=== PATIENT | female | born 1970 | race Caucasian/White ===

== ENCOUNTER 2020-05-02 16:53 | Emergency (ER) | payer MEDICAID, OTHER ==
[~2020-05-02] VITALS: Ht 170.2 cm; Wt 66.0 kg
[~2020-05-02 16:53] MED LIST: CEPH-368 PO; CIPR250T27 PO; DIVA-61 PO; DOCU-131 PO; FLUO20CA23 PO; HYDR100C2 PO; IBUP-1221 PO; LEVO50TA5 PO; LISI5TAB7 PO; LORA1TAB PO; OLAN20TA14 PO; ONDA-89 PO; OXYC-380 PO; OXYC1TAB14 PO; POLY10DR3 LEFTEYE; SULF1TAB24 PO
[2020-05-02] MEDS ORDERED: ASPIRIN 81 MG TABLET CHEW ONE (17:15)
--- NOTE | 2020-05-02 17:25 | NUR ---
[facility]/LEFT 9/10 CP THAT STARTED AROUND 4 PM. PT LAYING IN BED MOVING AROUND NON STOP STATING THE PAIN IS BAD ENOUGH SHE CANNOT STOP MOVING. PT STATES SHE HAD TOOTH INFECTION, WAS RECIEVING TREATMENT AND DEVELOPED SEPSIS. PT WAS TREATED AT [facility] FOR SEPSIS AND HAD MITRAL VALVE REPLACEMENT THERE FROM SEPSIS INFECTION, ABOUT 1.5 MONTHS AGO. PT ENDED UP LEAVING AMA AND STATES SHE DID NOT FINISH HER ABX TREATMENT. PT HAS HEALING MIDLINE INCISION AND X 2 SURGICAL STAB SITES ON UPPER ABDOMEN WITH SUTURES ALONG WITH X 1 SURGICAL STAB SITE ON LEFT LATERAL TORSO WITH SUTURE. PT STATES SHE HAS NOT FOLLOWED UP AFTER LEAVING AMA. TWO GUARDS AT BEDSIDE. PT IN HANDCUFFS AND ONE ANKLE CUFF. CONNECTED TO BOILING TUB OPERATOR AND CONTINUOUS PULSE OX
[2020-05-02] MEDS ORDERED: ASPIRIN 81 MG TABLET CHEW PO ONE (17:30)
[2020-05-02] MEDS ORDERED: SODIUM CHLORIDE FLUSH 10ML SYR IVF ONE (17:30)
[2020-05-02 17:33] LABS: BASOPHILS % (AUTO) 1 % (0-1); EOSINOPHILS % (AUTO) 3 % (1-7); LYMPHOCYTES % (AUTO) 27 % (22-44); MEAN CORPUSCULAR HEMOGLOBIN 28.9 pg (27.0-34.8); MEAN CORPUSCULAR HGB CONC 32.3 g/dL (32.4-35.8); MEAN PLATELET VOLUME 6.7 fL (7.4-10.4); MONOCYTES % (AUTO) 10 % (2-9); NEUTROPHILS % (AUTO) 59 % (42-75); PLATELET COUNT 314 x10^3/uL (130-400); RED CELL DISTRIBUTION WIDTH 17.2 % (9.6-15.2)
[2020-05-02 17:38] LABS: MD NO
[2020-05-02 17:45] LABS: ALANINE AMINOTRANSFERASE 17 U/L (12-78); ALBUMIN 2.8 g/dL (3.4-5.0); ANION GAP 5 mmol/L (5-15); CALCIUM 8.2 mg/dL (8.5-10.1); CHLORIDE 112 mmol/L (98-107); CREATININE 0.78 mg/dL (0.55-1.02)
[2020-05-02 17:46] LABS: INTERNATIONAL NORMALIZED RATIO 1.07 (0.93-1.1); PROTHROMBIN TIME 11.4 Seconds (9.6-11.5)
[2020-05-02 17:50] LABS: ALKALINE PHOSPHATASE 128 U/L (45-117); BILIRUBIN,TOTAL 0.3 mg/dL (0.2-1.0); TOTAL PROTEIN 5.8 g/dL (6.4-8.2); TROPONIN I 0.024 ng/mL (0.000-0.045)
--- NOTE | 2020-05-02 17:57 | NUR ---
UA COLLECTED AND WALKED TO LAB
[2020-05-02 18:16] LABS: AMPHETAMINE SCREEN, URINE Positive (Negative); BARBITURATE SCREEN, URINE Negative (Negative); BENZODIAZEPINE SCREEN, URINE Positive (Negative); CANNABINOID SCREEN, URINE Negative (Negative); COCAINE SCREEN, URINE Negative (Negative); METHADONE SCREEN, URINE Negative (Negative); OPIATE SCREEN, URINE Negative (Negative)
--- NOTE | 2020-05-02 20:00 | NUR ---
PT RESTING IN [place], REQUESTING PAIN MEDS. X2 GUARDS AT BEDSIDE
[2020-05-02] MEDS ORDERED: MORPHINE SULFATE 4 MG/ML, 1ML ONE (20:08)
[2020-05-02] MEDS ORDERED: MORPHINE SULFATE 4 MG/ML, 1ML IVPush ONE (20:30)
[2020-05-02] MEDS ORDERED: OMNIPAQUE 350 MG/ML, 100ML BOTTLE ONE (22:20)
[2020-05-02 22:50] VITALS: BP 107/66
== END 2020-05-02 23:01 | disposition home or self-care (01) ==
LOC: ED 17:02
DX: S32.009A Unspecified fracture of unspecified lumbar vertebra, initial encounter for closed fracture (principal); R07.89 Other chest pain; F10.10 Alcohol abuse, uncomplicated; F15.10 Other stimulant abuse, uncomplicated; F13.10 Sedative, hypnotic or anxiolytic abuse, uncomplicated; I25.2 Old myocardial infarction; R94.31 Abnormal electrocardiogram [ECG] [EKG]; I10 Essential (primary) hypertension; E78.00 Pure hypercholesterolemia, unspecified; Z95.4 Presence of other heart-valve replacement; Z72.9 Problem related to lifestyle, unspecified; X58.XXXA Exposure to other specified factors, initial encounter; Y93.89 Activity, other specified; Y92.89 Other specified places as the place of occurrence of the external cause; Y99.8 Other external cause status; Y90.9 Presence of alcohol in blood, level not specified
CPT/HCPCS: 36415; 71045; 71275; 74174; 80053; 80307; 84484; 85025; 85379; 85610; 85730; 93005; 96374; 99285; J2270; Q9967

== ENCOUNTER 2020-06-23 12:05 | Emergency (ER) | payer MEDICAID, OTHER ==
[~2020-06-23] VITALS: Ht 170.2 cm; Wt 70.5 kg
--- NOTE | 2020-06-23 12:05 | NUR ---
INITIAL PT CONTACT. PT BIBA FROM INTERMEDIATE C/O CHEST PAIN AND SOB, WORSE WITH PALPATION AND DEEP BREATHING. HX OF SAME. PER RECORDS FROM INTERMEDIATE, PT HAS BEEN C/O THIS PAIN FOR ABOUT 3 WEEKS. 25MG METOPROLOL AND 81MG ASPIRIN GIVEN AT THE INTERMEDIATE. 324 ASA AND 0.8 NTG WITH EMS. PT DENIES ANY CHANGE IN PAIN FOLLOWING INSURANCE SPECIAL AGENT. PT PLACED ON CONTINUOUS PULSE OX AND CARDIAC MONITORING. NO ADDITIONAL NEEDS AT THIS TIME. CALL LIGHT IN REACH. INTERMEDIATE STAFF AT BEDSIDE. NO ADDITIONAL NEEDS AT THIS TIME. AWAITING ERP.
--- NOTE | 2020-06-23 13:07 | NUR ---
PT RESTING UPRIGHT ON GURNEY, EYES CLOSED, NADN, VSS. PT DENIES ANY NEEDS AT THIS TIME. AWAITING ERP. NO ADDITIONAL NEEDS AT THIS TIME. SKILLED NURSING STAFF REMAINS AT BEDSIDE.
--- NOTE | 2020-06-23 13:34 | NUR ---
XRAY AT BEDSIDE
[2020-06-23] MEDS ORDERED: MORPHINE SULFATE 4 MG/ML, 1ML ONE (13:35)
--- NOTE | 2020-06-23 13:47 | NUR ---
REPORT TO AYESHA COATES
[2020-06-23] MEDS ORDERED: MORPHINE SULFATE 4 MG/ML, 1ML IVPush PRN (14:00)
[2020-06-23 14:18] LABS: ALANINE AMINOTRANSFERASE 16 U/L (12-78); ALBUMIN 3.7 g/dL (3.4-5.0); ANION GAP 6 mmol/L (5-15); BASOPHILS % (AUTO) 1 % (0-1); CALCIUM 9.3 mg/dL (8.5-10.1); CHLORIDE 109 mmol/L (98-107); CREATININE 0.93 mg/dL (0.55-1.02); EOSINOPHILS % (AUTO) 1 % (1-7); LYMPHOCYTES % (AUTO) 20 % (22-44); MEAN CORPUSCULAR HEMOGLOBIN 26.8 pg (27.0-34.8); MEAN CORPUSCULAR HGB CONC 32.3 g/dL (32.4-35.8); MEAN PLATELET VOLUME 7.6 fL (7.4-10.4); MONOCYTES % (AUTO) 5 % (2-9); NEUTROPHILS % (AUTO) 73 % (42-75); PLATELET COUNT 248 x10^3/uL (130-400); RED BLOOD COUNT 5.44 x10^6/uL (3.82-5.3); RED CELL DISTRIBUTION WIDTH 16.9 % (9.6-15.2)
[2020-06-23 14:21] LABS: MD NO
[2020-06-23 14:23] LABS: ALKALINE PHOSPHATASE 126 U/L (45-117); BILIRUBIN,TOTAL 0.4 mg/dL (0.2-1.0); TOTAL PROTEIN 7.6 g/dL (6.4-8.2); TROPONIN I 0.031 ng/mL (0.000-0.045)
[2020-06-23] MEDS ORDERED: SODIUM CHLORIDE FLUSH 10ML SYR IVF ONE (14:30)
--- NOTE | 2020-06-23 15:12 | NUR ---
PT TO CT VIA [facility] AT THIS TIME.
[2020-06-23 15:13] VITALS: BP 159/108
[2020-06-23] MEDS ORDERED: OMNIPAQUE 350 MG/ML, 75ML BOTTLE ONE (15:29)
== END 2020-06-23 16:44 | disposition home or self-care (01) ==
LOC: ED 12:30
DX: R07.2 Precordial pain (principal); R07.89 Other chest pain; I48.91 Unspecified atrial fibrillation; F17.210 Nicotine dependence, cigarettes, uncomplicated; I10 Essential (primary) hypertension; Z86.39 Personal history of other endocrine, nutritional and metabolic disease; Z79.899 Other long term (current) drug therapy
CPT/HCPCS: 36415; 71045; 71275; 80053; 84484; 85025; 85379; 93005; 96374; 99285; J2270; Q9967

== ENCOUNTER 2020-07-04 12:36 | Emergency (ER) | payer MEDICAID, OTHER ==
[~2020-07-04] VITALS: Ht 170.2 cm; Wt 70.0 kg
--- NOTE | 2020-07-04 12:50 | NUR ---
LUCY FROM [place]. PT C/O CP SINCE 8AM TODAY. HX OF DC. CP RADIATING TO R ARM AND BACK. DENIES SOB/N/V. PT'S AOX4. RESPS EVEN AND UNLABORED. NSR WITHOUT ECTOPY AT THIS TIME. EKG DONE AT BEDSIDE BY EMT. ALL MONITORS IN PLACE. CALL LIGHT WITHIN REACH.
[2020-07-04] MEDS ORDERED: SODIUM CHLORIDE FLUSH 10ML SYR IVF ONE (13:00)
[2020-07-04] MEDS ORDERED: SODIUM CHLORIDE 0.9% 1,000ML IVBOLUS ONE (13:00)
[2020-07-04] MEDS ORDERED: KETOROLAC 30 MG/1 ML ONE (13:13)
--- NOTE | 2020-07-04 13:19 | NUR ---
PT MEDICATED PER EMAR FOR PAIN. PT TOLERATED WELL.
[2020-07-04 13:21] LABS: BASOPHILS % (AUTO) 1 % (0-1); EOSINOPHILS % (AUTO) 1 % (1-7); LYMPHOCYTES % (AUTO) 22 % (22-44); MEAN CORPUSCULAR HGB CONC 32.4 g/dL (32.4-35.8); MEAN PLATELET VOLUME 8.3 fL (7.4-10.4); MONOCYTES % (AUTO) 6 % (2-9); NEUTROPHILS % (AUTO) 71 % (42-75); PLATELET COUNT 255 x10^3/uL (130-400); RED BLOOD COUNT 5.46 x10^6/uL (3.82-5.3)
[2020-07-04 13:22] LABS: MD NO
[2020-07-04] MEDS ORDERED: KETOROLAC 30 MG/1 ML IM ONE (13:30)
[2020-07-04] MEDS ORDERED: KETOROLAC 30 MG/1 ML IVPush ONE (13:30)
[2020-07-04 13:39] LABS: ALBUMIN 3.8 g/dL (3.4-5.0); ANION GAP 4 mmol/L (5-15); CALCIUM 9.4 mg/dL (8.5-10.1); CHLORIDE 111 mmol/L (98-107); CREATININE 0.82 mg/dL (0.55-1.02)
[2020-07-04 13:42] LABS: TROPONIN I 0.021 ng/mL (0.000-0.045)
[2020-07-04 14:17] VITALS: BP 126/89
--- NOTE | 2020-07-04 14:22 | NUR ---
BREAK RN: Patient/LAW ENFORCEMENT given discharge instructions and they have confirmed that they understand the instructions. Patient ambulatory with steady gait.
== END 2020-07-04 14:23 | disposition home or self-care (01) ==
LOC: ED 12:46
DX: R07.89 Other chest pain (principal); F17.210 Nicotine dependence, cigarettes, uncomplicated; I10 Essential (primary) hypertension; E78.00 Pure hypercholesterolemia, unspecified; Z86.711 Personal history of pulmonary embolism
CPT/HCPCS: 36415; 71045; 80048; 82040; 84484; 85025; 93005; 96374; 99285; 99406; J1885

== ENCOUNTER 2020-12-28 00:09 | Emergency (ER) | payer MEDICAID, OTHER ==
[~2020-12-28] VITALS: Ht 170.2 cm; Wt 79.6 kg
[~2020-12-28 00:09] MED LIST changes: -OXYC-380 PO; +OXYC-501 PO; +OXYC1TAB12 PO; -OXYC1TAB14 PO; +SULF-23 PO; -SULF1TAB24 PO
--- NOTE | 2020-12-28 00:20 | NUR ---
LUCY FROM [facility]. PT WAS FOUND BY [employer] IN DISTRESS ON SIDEWALK PT C/O OF RIGHT SIDED CHEST PAIN. PT REPORTS TAKING WARFARIN AN LAST TIME TAKING IT WAS 4 DAYS AGO. PT REPORTS FALLING. PT STATES NO HEAD INJURY. ELECTRONIC DRAFTER AT BEDSIDE COMPLETING EKG ERMD AT BEDSIDE FOR EVAL BED IN [facility], RAIS ENGAGED. CALL LIGHT ON LAP. CARD/SP02/BP MOMNITORING ATTACHED. VSS. A&OX4. BREATHIG EVEN AND UNALBORED. WCGAURAV, Addendum: 12/28/20 at 0022 by [email or web address] PT APPEARS INTOXICATED AND SMELLS OF ETOH.
--- NOTE | 2020-12-28 01:08 | NUR ---
Patient is SLEEPING comfortably in bed. EYES CLOSED. PT SNORING LOUDLY. Bed in lowest, rails engaged, call light on lap.BREATHING EVEN AND UNLABORED. VSS. WCTM.
--- NOTE | 2020-12-28 02:43 | NUR ---
Patient is SLEEPING comfortably in bed. EYES CLOSED. Bed in lowest, rails engaged, call light on lap. BREATHING EVEN AND UNLABORED. VSS. WCTM.
[2020-12-28 03:28] VITALS: BP 157/113
--- NOTE | 2020-12-28 03:33 | NUR ---
Patient/Caregiver given discharge instructions and they have confirmed that they understand the instructions. Patient ambulatory TO BATHROOM WITH TO URINATE with steady gait THEN TO DC AREA. NAD, all questions answered appropriately, denies additional needs at this time. No personal belongings left in room after discharge. PT GIVEN NON SLIP SOCKS FOR SAFE DC.
--- NOTE | 2020-12-28 03:34 | NUR ---
PT REFUSED TAXI VOUCHER TO HOME OR [facility].
== END 2020-12-28 03:35 | disposition home or self-care (01) ==
LOC: ED 00:15
DX: R07.89 Other chest pain (principal); F10.10 Alcohol abuse, uncomplicated; Y90.0 Blood alcohol level of less than 20 mg/100 ml; I10 Essential (primary) hypertension; I48.91 Unspecified atrial fibrillation; E78.00 Pure hypercholesterolemia, unspecified; F17.200 Nicotine dependence, unspecified, uncomplicated; Z86.711 Personal history of pulmonary embolism
CPT/HCPCS: 36415; 71045; 80320; 93005; 99285; G0480